=== PATIENT | female | born 1980 | race Caucasian/White ===

== ENCOUNTER 2022-08-17 12:56 | Emergency (ER) | payer BC ==
[~2022-08-17] VITALS: Ht 157.5 cm; Wt 63.5 kg
[2022-08-17 13:31] VITALS: BP 91/40
[2022-08-17] MEDS ORDERED: NACL 0.9% 1,000 ML IV ONE (13:40)
--- NOTE | 2022-08-17 14:17 | NUR ---
AT TO EXAMINE, PT C/O SALGADO, GE WEAKNESS,DECREASE APPETITE , LETHARGY
[2022-08-17] MEDS ORDERED: ACETAMINOPHEN EXTRA STRENGTH 500 MG TAB PO ONE (14:25)
[2022-08-17] MEDS ORDERED: KETOROLAC 15 MG/ML VIAL IVP ONE (14:25)
[2022-08-17 15:37] VITALS: BP 90/57
[2022-08-17 15:47] LABS: BILIRUBIN,URINE NEGATIVE (NEGATIVE); BLOOD, URINE 3+ (NEGATIVE); COLOR,URINE YELLOW (YELLOW); LEUKOCYTE ESTERASE ,URINE TRACE (NEGATIVE); NITRITE, URINE NEGATIVE (NEGATIVE); UGLUCOSE NEGATIVE (NEGATIVE)
[2022-08-17 16:09] LABS: APPEARANCE,URINE HAZY (CLEAR)
[2022-08-17 16:16] LABS: RBC,URINE 0-5 /HPF (0-5)
[2022-08-17] MEDS ORDERED: TAM75 PO (16:33)
--- NOTE | 2022-08-17 17:00 | NUR ---
Patient discharged with v/s stable. Written and verbal after care instructions given and explained. Patient alert, oriented and verbalized understanding of instructions. with steady gait. All questions addressed prior to discharge. ID band removed. Patient advised to follow up with PMD. Rx of TAMIFLU given. Patient educated on indication of medication including possible reaction and side effects. Opportunity to ask questions provided and answered.
== END 2022-08-17 16:59 | disposition home or self-care (01) ==
LOC: MED 12:56
DX: J10.1 Influenza due to other identified influenza virus with other respiratory manifestations (principal); R51.9 Headache, unspecified; M79.10 Myalgia, unspecified site; Z20.822 Contact with and (suspected) exposure to COVID-19; Z79.899 Other long term (current) drug therapy
CPT/HCPCS: 81001; 87426; 87804; 96361; 96374; 99283; J1885; J7030